=== PATIENT | female | born 1960 | race Caucasian/White ===

== ENCOUNTER → 2016-11-08 | Outpatient (CLI) | payer BC, OTHER ==
--- NOTE | 2016-11-08 12:41 | MR ---
"EXAMINATION TYPE: MR cervical spine wo con DATE OF EXAM: 11/08/2016 10:48 AM COMPARISON: NONE HISTORY: csp radiculopathy TECHNIQUE: Multiplanar, multisequence images of the cervical spine were acquired. C2-C3: Central broad-based disc bulging. No canal stenosis or foraminal encroachment. C3-C4: Central disc herniation with the anterior compression of the spinal cord and severe canal sten osis. C4-C5: Central disc herniation with anterior compression of the spinal cord and severe spinal stenosi s. Mild bilateral foraminal encroachment. C5-C6: Broad-based central disc herniation with severe compression of the spinal cord. Uncovertebral joint hypertrophy results in severe bilateral foraminal encroachment. C6-C7: Central disc herniation with moderate to severe compression of the spinal cord. Uncovertebral joint hypertrophy is seen with moderate bilateral foraminal encroachment. C7-T1: No evidence for degenerative disc disease. No disc bulge/herniation or protrusion. No Canal stenosis. Foramina are patent bilaterally. Cervical segments are intact. There is normal alignment. Cervical spinal cord is of normal signal. Craniovertebral junction relationships are within normal limits. 5 mm left thyroid nodule noted. IMPRESSION: Multilevel sizable disc herniations with multilevel cord compression and severe spinal stenosis. 3 mm left thyroid nodule A Yellow message has been communicated to Dariel Newman DO via the [employer] | Critical Result sy stem on 11/08/2016 12:37 PM, Message ID [id number]."
== END | disposition home or self-care (01) ==
LOC: RADMRIMAIN 10:21
PROVIDERS: ATTEND Orthopaedic Surgery Orthopaedic Surgery of the Spine
DX: M48.02 Spinal stenosis, cervical region (principal); M50.10 Cervical disc disorder with radiculopathy, unspecified cervical region; G95.29 Other cord compression
CPT/HCPCS: 72141

== ENCOUNTER → 2016-12-26 | Outpatient (CLI) | payer BC, OTHER ==
--- NOTE | 2016-12-27 07:23 | MM ---
Reason for exam: screening (asymptomatic). History: Patient is postmenopausal. Physical Findings: Nurse did not find any significant physical abnormalities on exam. MG Screening Mammo w CAD Bilateral CC and MLO view(s) were taken. There are scattered fibroglandular densities. There is no discrete abnormality. These results were verbally communicated with the patient and result sheet given to the patient on 12/26/16. ASSESSMENT: Negative, BI-RAD 1 RECOMMENDATION: Routine screening mammogram of both breasts in 1 year.
--- NOTE | 2016-12-27 07:52 | BD ---
EXAMINATION TYPE: MG DEXA axial skeleton. DATE OF EXAM: 12/26/2016 2:49 PM COMPARISON: NONE CLINICAL HISTORY: V49.81 POST MENOPAUSAL STATUS, Z78.0 MENOPAUSAL STATE Height: 64 Weight: 234 FRAX RISK QUESTIONS: Alcohol (3 or more units per day): NO Family History (Parent hip fracture): NO BROKEN BONES Glucocorticoids (More than 3mos): NO (Ex: prednisone, prednisolone, methylprednisolone, dexamethasone, and hydrocortisone). History of Fracture in Adulthood: YES Secondary Osteoporosis: NO 1. Type 1 Diabetes: NO 2. Hyperthyroidism: NO 3. Menopause before 45: NO 4. Malnutrition: NO 5. Chronic liver disease: NO Rheumatoid Arthritis: NO Current Tobacco Use: NO RISK FACTORS HISTORY OF: Surgery to RT HIP...TOTAL HIP REPLACEMENT When: 2011 Other Fractures since Age 50: RT ELBOW When: > 50 YRS OLD Family History of Osteoporosis: YES, MOTHER, Smoke tobacco: NO Drink Alcohol: SOCIAL Active: YES Diet low in dairy products/other sources of calcium: NO Postmenopausal woman: 46 YRS OLD Adrenal Insufficiency: NO MEDICATIONS: Thyroid Medications: YES Which medication: SYNTHROID How Lon YRS Additional Medications: BP MEDS, TYLENOL WITH CODINE PRN, HEAVY USE OF STEROIDS IN PAST....LAST USED 2015 Additional History: HYPOGLYCEMIC, ARTHRITIS, NECK TROUBLE, FUSION SCHEDULED EXAM MEASUREMENTS: Bone mineral densitometry was performed using the [employer] System. Bone mineral density as measured about the Lumbar spine is: ----- L1-L4(G/cm2): 1.136 T Score Values are as follows: ----- L1: -0.8 ----- L2: -08 ----- L3: 0.2 ----- L4: -0.3 ----- L1-L4: -0.4 Bone mineral density NEW PATIENT, BASELINE Bone mineral density about the L hip (g/cm2): 0.852 T Score values are as follows: ----L Neck: -1.5 -----L Intertrochanter: -1.0 Bone mineral density NEW PATIENT, BASELINE FRAX %'S: 11.2% FOR MAJOR OSTEOPOROTIC FX AND 0.9% FOR HIP FX......PROBABILITY OF FX IN 10 YRS T CHRIS IMPRESSION: Osteopenia (T Score between -2.5 and -1 as noted by T score values There is slightly increased risk of fracture and the patient may be considered for treatment. Re-Screen 1-2 years. FOR HER LT HIP ONLY NOTE: T-SCORE=SD OF THE YOUNG ADULT MEAN.
== END | disposition home or self-care (01) ==
LOC: RADMAMWWP 14:45
PROVIDERS: ATTEND Family Medicine
DX: Z12.31 Encounter for screening mammogram for malignant neoplasm of breast (principal); Z78.0 Asymptomatic menopausal state; M85.80 Other specified disorders of bone density and structure, unspecified site
CPT/HCPCS: 77080; G0202

== ENCOUNTER 2017-01-01 04:59 | Inpatient (IN) | payer BC, OTHER ==
[2016-12-22 12:23] VITALS: BMI 38.2
[2017-01-01] MEDS ORDERED: ceFAZolin 2 GM in SODIUM CHLORIDE 0.9% 100 ML IVPB ONE (05:00)
[2017-01-01] MEDS ORDERED: BACITRACIN 50,000 UNIT, POLYMYXIN B 500,000 UNIT in SODIUM CHLORIDE 0.9% IRRIGATIO 1,00... IRRIGATION ONE (05:00)
[2017-01-01] MEDS ORDERED: SCOPOLAMINE 1.5MG/72HR PATCH TRANSDERM ONE (05:39)
[2017-01-01] MEDS ORDERED: HYDROmorphone 1 MG/ML 1 ML SYRINGE IVP PRN (05:39)
[2017-01-01] MEDS ORDERED: LIDOCAINE 1% 20 ML VIAL (10MG/ML) FOR IV START INTRADERMA PRN (05:39)
[2017-01-01] MEDS ORDERED: ONDANSETRON 4 MG/2 ML VIAL IVP ONE (05:39)
[2017-01-01] MEDS: LACTATED RINGERS 1,000 ML IV SCH ×2 (11:43→17:58)
[2017-01-01] MEDS ORDERED: THROMBIN (BOVINE) 5,000 UNIT VIAL TOPICAL ONE (12:52)
[2017-01-01] MEDS ORDERED: KETAMINE 10 MG/ML 20 ML VIAL ONE (12:53)
[2017-01-01] MEDS ORDERED: ePHEDrine 50 MG/ML 1 ML AMP ONE (12:53)
[2017-01-01] MEDS ORDERED: GELATIN SPONGE,ABSORB (LARGE) 1 EACH SPONGE TOPICAL ONE (12:53)
[2017-01-01] MEDS ORDERED: LIDOCAINE 1% INJ 10MG/ML (20 ML MDV) ONE (12:53)
[2017-01-01] MEDS ORDERED: LACTATED RINGERS 1,000 ML IV ONE ×3 (12:53→15:53)
[2017-01-01] MEDS ORDERED: DEXAMETHASONE SOD PHOS (MDV) 100 MG/10 ML VIAL ONE (12:53)
[2017-01-01] MEDS ORDERED: MIDAZOLAM 2 MG/2 ML VIAL ONE (12:53)
[2017-01-01] MEDS ORDERED: SUCCINYLCHOLINE CHLORIDE 100 MG/5 ML SYR IV ONE (12:53)
[2017-01-01] MEDS ORDERED: HYDROmorphone (PF) 1 MG/ML ONE (12:53)
[2017-01-01] MEDS ORDERED: fentaNYL (PF) 50 MCG/ML 2 ML AMP ONE (12:53)
[2017-01-01] MEDS ORDERED: ROCURONIUM BROMIDE 10 MG/ML 10 ML VIAL IV ONE (12:53)
[2017-01-01] MEDS ORDERED: LIDOCAINE 0.5%-EPI 1:200,000 50 ML VIAL SQ ONE (12:53)
[2017-01-01] MEDS ORDERED: PROPOFOL 10 MG/ML 20 ML VIAL IV ONE (12:53)
--- NOTE | 2017-01-01 14:01 | XR ---
EXAMINATION TYPE: XR cervical spine 1V DATE OF EXAM: 01/01/2017 1:55 PM COMPARISON: Cervical spine x-ray June 12, 2016 HISTORY: Cervical arthropathy TECHNIQUE: Single portable crosstable lateral view of cervical spine is obtained intraoperatively FINDINGS: Single image acquired is for surgical planning and not diagnostic purposes. Metallic pointe r is noted at C4-C5 disc space level. IMPRESSION: As above.
--- NOTE | 2017-01-01 15:56 | XR ---
EXAMINATION TYPE: XR cervical spine 1V DATE OF EXAM: 01/01/2017 3:51 PM COMPARISON: Cervical spine x-ray from earlier today. HISTORY: Cervical stenosis and pain TECHNIQUE: Single portable crosstable lateral view of cervical spine is obtained intraoperatively. FINDINGS: There is interval placement of anterior fusion plate with proximal screw at C3 vertebral jacinda dy level, mid screw at C6 vertebral body level, and inferior screw obscured by overlying soft tissue likely at T1 level. High dense disc material is seen at C3-C4, C4-C5, and C5-C6 levels. The soft subo ptimal evaluation low C6 vertebra. Alignment is satisfactory and stable. There is interval treatment of anterior osteophytes C5-C6 level. Flexible endotracheal tube redemonstrated. Nasal monitor redemonstrated. IMPRESSION: Partial visualization of long segment anterior fusion hardware and hyperdense disc spacer s.
[2017-01-01] MEDS ORDERED: MAG HYDROX/AL HYDROX/SIMETH 30 ML CUP PO PRN (16:03)
[2017-01-01] MEDS ORDERED: HYDROcodone/APAP 5-325MG 1 EACH TAB PO PRN (16:03)
--- NOTE | 2017-01-01 16:03 | P.OP ---
Date of Procedure: 01/01/17 Preoperative Diagnosis: Cervical myelopathy, severe cervical stenosis C3 4 C4 5, C5 6 and C6 7, degenerative disc disease C3 through C7, neck pain with upper extremity radiculopathy, myeloradiculopathy Postoperative Diagnosis: Same Anesthesia: GETA Pathology: none sent Condition: stable Disposition: PACU Description of Procedure: BRIEF OPERATIVE NOTE Preoperative Diagnosis: Severe cervical stenosis C3 4 C4 5 C5 6 C6 7, cervical myelopathy, cervical myeloradiculopathy, degenerative disc disease C3 through C7 , neck pain with upper extremity radiculopathy Postoperative Diagnosis: Same Procedure: Anterior cervical decompression and fusion C3 4 C4 5 C5 6 C6 7 Placement of interbody graft C3 4 C4 5 C5 6 C6 7 Application of anterior cervical plate C3 4 567 Surgeon: Dr. Newman Requirements Manager: Felix Ramey is present throughout the entire the case persistence during positioning, dissection, exposure, visualization, and all crucial elements of the case as well as closure. Anesthesia: General anesthesia Estimated blood loss: Approximately 150 mL Complications: None apparent Components implanted: K2M Pyreanese titanium anterior cervical plate and screws , with Vikos allograft interbody bone graft Disposition: To recovery room in good stable condition. OPERATIVE INDICATIONS The patient has had long-standing issues in their neck and upper extremities. She is found have severe stenosis at multiple levels of C3 4 C4 5 C5 6 and C6 7. She had some evidence of early myelopathy on her physical exam and was having worsening of her symptoms. The patient has been through conservative treatment. She is not having any lasting benefit despite aggressive conservative treatment. We discussed various treatment options including surgery, and the patient wishes to proceed with surgery We discussed the risk, patient's alternatives and benefits of surgery including but not limited to, risk of bleeding risk of infection, risk of need for further surgery, risk of decreased, loss of motion, muscle function, malunion nonunion, hardware failure , nerve damage, paralysis, heart attack, and . OPERATIVE SUMMARY After discussing all the risks, patient alternatives and benefits at length, the patient elected to proceed with surgical intervention, signed informed consent, and presented for their procedure. The patient was seen and examined in the preoperative holding area and the surgical site was marked. The patient was given antibiotics and brought to the operating room. The patient was positioned on the operating room table in a supine position being careful to pad any bony prominences and pressure points. The patient was sedated and intubated by anesthesia in standard fashion. Once the airway and C- spine were stabilized the patient's arms were padded and tucked at her side, with her shoulders gently taped. The head was placed in a donut pad with the neck in good neutral alignment and position. We were careful to maintain the patient's cervical spine and good neutral alignment and position throughout. The patient was prepped and draped in a normal standard fashion. An appropriate timeout and keystone protocol performed. We were able to proceed with the surgery. The local wound area was infiltrated with local anesthetic. An incision was made longitudinally to the right at the anterior border of her sternocleidomastoid approximately 5 cm in length over the appropriate levels. Dissection was taken down subcutaneously to the level of the platysma which was split in line with its fibers. Dissection was taken with a carotid approach, with the trachea and esophagus medial and the carotid sheath laterally. We dissected down to the anterior surface of the vertebral bodies. Intraoperative x-ray was taken which showed a marker at the appropriate level of C4 5. With the appropriate level positively confirmed, we were able to proceed with discectomy at the appropriate levels starting at C6 7 and then working our way cephalad to C5 6 C4 5 and C3 4. All of the operative levels were exposed appropriately. The patient had all their twitches back, and there was no evidence of recurrent laryngeal issue. The wound was copiously irrigated and suctioned dry as had been done periodically throughout the case. There were large anterior osteophytes particular at C56 and C4 5 which were taken down with a rongeur. At the appropriate level/levels, I established an annulotomy with an 11 blade scalpel. A discectomy was performed with a combination of pituitary rongeurs, curettes, a high-speed bur, and Kerrison rongeurs. The posterior longitudinal ligament was taken down as were any posterior osteophytes. Note was made of severe cervical stenosis at each level particularly at C34 and C6 7. I was able to take down posterior osteophytes and the posterior longitudinal ligament as well as any protruded disc. This gave good central and bilateral foraminal decompression. There is no evidence of any dural tear or leak. The endplates were prepared with a high-speed bur. With the endplates in good parallel position, I was able to size for the appropriate size interbody graft. The wound was irrigated and suctioned dry the graft was prepared and malleted into position. It had good alignment and position with the anterior surface flush with the anterior surface of the vertebral bodies. This was done similarly the appropriate levels first at C6 7 and then at C5 6 and then at C4 5 and then at C3 4. With the grafts intact, I was able to measure and contour and appropriate sized plate. The plate was positioned at the midline over the appropriate levels. Screw holes were established with a hand drill and drill guide. Screws were placed in good alignment and position with excellent bony purchase. They were seated well and torqued appropriately with the appropriate force to apply a cold weld at the construct. The alignment of the screw holes did not allow placement at each level. I was able place screws 2 at C3 C6 and C7. The construct was checked and found to be stable. Intraoperative x-ray was taken which showed good alignment and position of the implants at the appropriate levels. There was no evidence of any dural tear or leak. Good hemostasis was maintained. The wound was copiously irrigated and suctioned dry as had been done periodically throughout the case. The platysma was closed with absorbable suture. The subcutaneous tissue was closed. The subcuticular tissue was closed with absorbable suture. The wound was cleaned and dried and dressed appropriately. A soft cervical collar was placed appropriately. The patient was woken up by anesthesia, extubated, transferred back gently to their hospital bed and brought to the recovery room in good stable condition. The patient will be admitted to the hospital for appropriate postoperative care , medical management and monitoring. We will continue to follow them closely about the postoperative course.
[2017-01-01] MEDS ORDERED: Acetaminophen-Codeine 300-30mg TAB PO PRN (16:05)
[2017-01-01] MEDS ORDERED: LABETALOL 5 MG/ML VIAL MDV IVP ONE ×3 (16:45→17:12)
[2017-01-01] MEDS ORDERED: HYDROmorphone 1 MG/ML 1 ML SYRINGE IVP ONE ×2 (17:13→17:18)
[2017-01-01] MEDS: ceFAZolin 2 GM in SODIUM CHLORIDE 0.9% 100 ML IVPB SCH (20:44)
[2017-01-01] MEDS: HYDROmorphone 1 MG/ML 1 ML SYRINGE IVP PRN (23:26)
[2017-01-02] MEDS: HYDROmorphone 1 MG/ML 1 ML SYRINGE IVP PRN ×6 (01:18→21:13)
[2017-01-02] MEDS: HYDROcodone/APAP 5-325MG 1 EACH TAB PO PRN ×6 (01:51→23:52)
[2017-01-02] MEDS: ceFAZolin 2 GM in SODIUM CHLORIDE 0.9% 100 ML IVPB SCH (04:49)
[2017-01-02] MEDS: LEVOTHYROXINE 100 MCG TAB PO SCH (06:35)
[2017-01-02] MEDS: LOSARTAN 50 MG TAB PO SCH (07:34)
[2017-01-02] MEDS: DOCUSATE 100 MG CAP PO SCH (07:34)
[2017-01-02] MEDS: DIAZEPAM 5 MG TAB PO PRN ×3 (08:19→18:44)
[2017-01-02] MEDS: ONDANSETRON 4 MG/2 ML VIAL IVP PRN ×2 (08:58→17:02)
--- NOTE | 2017-01-02 09:07 | P.PN ---
Progress Note - Text Orthopedic Spine Patient is a pleasant 56-year-old female who is seen at the bedside following anterior cervical decompression and fusion C3-4, C4-5, C5-6, and C6-7 performed yesterday. She continues to have her soft cervical collar intact. Nursing has not allowed her to get out of bed until her hard cervical collar has been placed. I have removed her soft cervical collar in place her in a hard cervical collar. Patient states she did have some difficulty with pain control last night. She has been experiencing some pains between the shoulders , the posterior cervical spine, and over the right upper extremity. Breakfast was just recently brought to her this morning and she has not been able to attempt eating at this morning. She states she is ready to use the restroom and is planning to do so now that she has been transitioned into a hard collar. Currently does not complain of nausea, vomiting, fever, or chills. Patient states pain has been somewhat controlled. Physical Exam Cervical Fusion: Status post surgical day number 1 Patient is awake, alert, and oriented 3 Vital signs stable Good chest excursion with deep inspiration and expiration Abdomen soft nontender Nurse Receptionist strength, thumb strength, interosseous strength, biceps strength, triceps strength, and shoulder strength positive sustained bilaterally No signs or symptoms of DVT; no calf pain Dressing is dry and intact; no erythema, purulence, or signs of infection Small amounts of dried blood on the Telfa without active drainage Patient is wearing soft cervical collar, which is removed during physical examination Patient placed in hard cervical collar Assessment: Anterior cervical decompression and fusion C3-4, C4-5, C5-6, and C6-7 C3-4, C4-5, C5-6, and C6-7 severe cervical stenosis and degenerative disc disease Cervical myelopathy Myeloradiculopathy Cervicalgia with upper extremity radiculopathy Plan: 1. Ambulate as tolerated; work with Physical Therapy to increase mobilization 2. Continue pain control 3. Patient transitioned from soft cervical collar to hard collar; patient should keep hard collar intact while ambulating, while doing activities, and while sitting upright; she may wear a soft cervical collar while sleeping 4. Patient may shower with Tegaderm dressing; patient may remove Tegaderm in 4 days and shower without a dressing at that time 5. Medical management can continue to manage patient for patient's other medical issues 6. We will continue to follow the patient closely; if the patient improves throughout the day, we may plan for discharge home tomorrow, 01/03/2017 7. Patient can follow-up with Felix Coyle PA-C or Dr. Jameel Newman at [facility] in 2-3 weeks following discharge
[2017-01-02 16:10] VITALS: RESP 16
[2017-01-02] MEDS: BENZOCAINE/MENTHOL LOZENG 1 EACH LOZENGE MUCOUS MEM PRN (23:52)
[2017-01-03] MEDS: DIAZEPAM 5 MG TAB PO PRN ×3 (01:36→13:43)
[2017-01-03] MEDS: HYDROmorphone 1 MG/ML 1 ML SYRINGE IVP PRN (01:36)
[2017-01-03] MEDS: HYDROcodone/APAP 5-325MG 1 EACH TAB PO PRN ×3 (04:10→13:43)
[2017-01-03] MEDS: BENZOCAINE/MENTHOL LOZENG 1 EACH LOZENGE MUCOUS MEM PRN (07:14)
[2017-01-03] MEDS: LEVOTHYROXINE 100 MCG TAB PO SCH (07:14)
[2017-01-03 07:36] VITALS: BP 128/65; PULSE 76; TEMP 97.5
--- NOTE | 2017-01-03 07:50 | P.DS ---
Providers Date of admission: 01/01/17 11:19 Expected date of discharge: 01/03/17 Attending physician: Dariel Newman Primary care physician: Harlan Rodriguez - Discharge Diagnosis(es) (1) Cervical stenosis of spinal canal Current Visit: Yes Status: Acute (2) Degenerative disc disease, cervical Current Visit: Yes Status: Acute (3) Radiculopathy affecting upper extremity Current Visit: Yes Status: Acute (4) Myelopathy Current Visit: Yes Status: Acute (5) Cervicalgia Current Visit: Yes Status: Acute Hospital Course: This is a pleasant 56-year-old female who presented with C3-4, C4-5, C5-6, and C6-7 severe cervical stenosis and degenerative disc disease, Cervical myelopathy , Myeloradiculopathy, and Cervicalgia with upper extremity radiculopathy who failed outpatient conservative therapy. She admitted for Anterior cervical decompression and fusion C3-4, C4-5, C5-6, and C6-7. The patient tolerated the procedure well and did fairly well postoperatively. She has been experiencing some pain and muscle spasms over the right shoulder and right scapula. She is continued to take [place] 5 mg 2 tabs every 4 hours and Valium for some control her symptoms. Other than that, she states her symptoms have been well- controlled. She continues to wear a hard cervical collar while ambulating and doing activities. She has been wearing a soft collar while lying in bed. Patient states she is ready for discharge home. Condition on day of discharge stable. Patient will be discharged home. Patient was cleared preoperatively for surgery by Dr. Rodriguez. Patient currently denies any nausea, vomiting, fever , or chills. Patient is eating and voiding freely without difficulty. She states her throat is still sore but she has been able to swallow without difficulty. Patient may shower Tegaderm dressing intact. Patient may remove Tegaderm dressing in 3 days and shower without a dressing at that time. Patient should keep Steri-Strips intact and allow them to fall off naturally. Patient should refrain from driving until at least after their first follow-up appointment in the office. Patient should avoid excessive neck flexion, extension, rotation, and lateral sidebending; no overhead lifting; no lifting greater than 10 pounds. Patient has been instructed to continue wearing her hard cervical collar while ambulating and while doing activities. She does not have to wear the hard collar while lying in bed or bathing. She should sleep with her soft cervical collar intact. She'll given a prescription for Flexeril 10 mg 1 tablet every 8 hours and [place] 10 mg/325mg 1 tab every 4 hours which she may take as needed for relief of her symptoms. She should discontinue taking Tylenol 3 with codeine. She should avoid anti-inflammatories over the next 6 weeks. Physical Exam on day of discharge: Patient is awake, alert, and oriented 3 Vital signs stable Good chest excursion with deep inspiration and expiration Abdomen soft nontender No signs or symptoms of DVT; no calf pain Full range of motion of the cervical spine with adequate flexion, extension, and bilateral rotation Manager [employer] strength, thumb strength, interosseous strength, biceps strength, triceps strength, and shoulder strength positive sustained bilaterally Soft cervical collar intact Incision is clean, dry, and intact; no erythema, purulence, or signs of infection Tegaderm dressing and non-stick Telfa intact Procedures: Anterior cervical decompression and fusion C3-4, C4-5, C5-6, and C6-7 Patient Condition at Discharge: Stable Plan - Discharge Summary New Discharge Prescriptions: Cyclobenzaprine [Flexeril] 10 mg PO TID PRN #90 tab PRN Reason: Muscle Spasm HYDROcodone/APAP 10-325MG [[place] 10] 1 each PO Q4H PRN #90 tab PRN Reason: Pain Discharge Medication List Levothyroxine Sodium [Synthroid] 100 mcg PO DAILY 02/15/15 [History] Acetaminophen-Codeine 300-30mg [Tylenol #3] 1 tab PO Q4H PRN 09/13/16 [History] Losartan Potassium 100 mg PO DAILY 09/13/16 [History] Cyclobenzaprine [Flexeril] 10 mg PO TID PRN #90 tab 01/03/17 [Rx] HYDROcodone/APAP 10-325MG [[place] 10] 1 each PO Q4H PRN #90 tab 01/03/17 [Rx] Follow up Appointment(s)/Referral(s): Felix Coyle, TRELL [PHYSICIAN BIOMASS FACILITATOR] - 2 Weeks (Patient may follow-up with Felix Coyle PA-C or Dr. Jameel Newman at [facility] in 2-3 weeks following discharge. ) Activity/Diet/Wound Care/Special Instructions: 1. Patient may shower Tegaderm dressing intact. 2. Patient may remove Tegaderm dressing in 3 days and shower without a dressing at that time. 3. Patient should keep Steri-Strips intact and allow them to fall off naturally. 4. Patient should refrain from driving until at least after their first follow- up appointment in the office. 5. Patient should avoid excessive cervical extension, flexion, rotation, and side bending; avoid overhead lifting; no lifting greater than 10 pounds 6. Do not soak in tub 7. Keep hard cervical collar intact while sitting upright, while ambulating, while doing activities, and while working with physical therapy; may transition into a soft cervical collar while sleeping Discharge Disposition: HOME SELF-CARE
[2017-01-03] MEDS: ONDANSETRON 4 MG/2 ML VIAL IVP PRN (08:23)
[2017-01-03] MEDS: DOCUSATE 100 MG CAP PO SCH (09:11)
[2017-01-03] MEDS: LOSARTAN 50 MG TAB PO SCH (09:11)
--- NOTE | 2017-01-03 15:13 | P.PN ---
Progress Note - Text Postoperative day #2 Patient is seen and examined today at bedside. The patient has some pain around the surgical site as expected. Pain is being controlled with medication. Her pain is much improved today she's not having as much spasm at the base of her neck or toward her right side. She's not having weakness in her upper extremities. She feels her arms are doing better. She is able tolerate her diet and ambulate around the room and into the hallways. Physical Exam Afebrile with stable vital signs Abdomen is soft nontender. Chest has good excursion deep and space expiration The incision site is clean dry and intact. No erythema there is no purulence. Her neck is soft and supple Extremities have not had neurologic change from prior to surgery. She is good strength in her bilateral hands and wrists and elbows and shoulders. She has some spasm at her shoulders particularly on the the right Calves and thighs were soft nontender without evidence of DVT. Assessment/Plan Postoperative day #2 status post anterior cervical discectomy fusion C3 4 C4 5 C5 6 and C6 7 for her severe stenosis with cervical myelopathy Patient is progressing as expected from the surgery. Her spasm are improving significantly and I think she'll be able to go home today. Her neurologic status is well maintained and she feels her sensation in her upper extremities has improved. We will continue to increase the patient's mobilization with therapy. We will continue pain control with oral or IV medications. We'll continue to follow patient closely.
== END 2017-01-03 14:20 | disposition home or self-care (01) | DRG 472 ==
LOC: 2ORMAIN 11:19 → 5MS5E 16:01
PROVIDERS: ADMIT Orthopaedic Surgery Orthopaedic Surgery of the Spine; ATTEND Orthopaedic Surgery Orthopaedic Surgery of the Spine
PROC: 0RT30ZZ Resection of Cervical Vertebral Disc, Open Approach (ICD-10-PCS; 2017-01-01)
PROC: 0RG20K0 Fusion of 2 or more Cervical Vertebral Joints with Nonautologous Tissue Substitute, Anterior Approach, Anterior Column, Open Approach (ICD-10-PCS; principal; 2017-01-01 13:00)
DX: M48.02 Spinal stenosis, cervical region (principal); M50.01 Cervical disc disorder with myelopathy, high cervical region; I10 Essential (primary) hypertension; M50.121 Cervical disc disorder at C4-C5 level with radiculopathy; E03.9 Hypothyroidism, unspecified; E78.00 Pure hypercholesterolemia, unspecified; E78.5 Hyperlipidemia, unspecified; E66.9 Obesity, unspecified; Z68.38 Body mass index [BMI] 38.0-38.9, adult; M79.7 Fibromyalgia; M48.06 Spinal stenosis, lumbar region; M51.37 Other intervertebral disc degeneration, lumbosacral region; M47.9 Spondylosis, unspecified; Z79.899 Other long term (current) drug therapy; Z98.84 Bariatric surgery status; Z88.1 Allergy status to other antibiotic agents
CPT/HCPCS: 72020

== ENCOUNTER 2017-10-16 06:59 | Day surgery (SDC) | payer OTHER ==
[2017-10-09 10:15] VITALS: BMI 36.6
[~2017-10-16 06:59] MED LIST: DEXAMETHASONE SOD PHOSPHATE 10 MG/ML 1 ML VIAL IV ONE; LACTATED RINGERS 1,000 ML IV SCH; MIDAZOLAM 2 MG/2 ML VIAL IV PRN; ceFAZolin IN SWFI 2 GM/20 ML SYRINGE IVP ONE
[2017-10-16] MEDS ORDERED: LIDOCAINE 1% 20 ML VIAL (10MG/ML) FOR IV START INTRADERMA ONE (07:20)
[2017-10-16] MEDS: ONDANSETRON 4 MG/2 ML VIAL IVP ONE ×2 (07:23→09:22)
[2017-10-16] MEDS ORDERED: LIDOCAINE 1% INJ 10MG/ML (20 ML MDV) ONE (07:56)
[2017-10-16] MEDS ORDERED: fentaNYL (PF) 50 MCG/ML 2 ML AMP ONE (07:56)
[2017-10-16] MEDS ORDERED: BUPIVACAINE (PF) 0.5% 30 ML VIAL INTRAARTIC ONE (07:56)
[2017-10-16] MEDS ORDERED: MIDAZOLAM 2 MG/2 ML VIAL ONE (07:56)
[2017-10-16] MEDS ORDERED: KETOROLAC 30 MG/ML 1 ML VIAL ONE (07:56)
[2017-10-16] MEDS ORDERED: HYDROmorphone (PF) 1 MG/ML ONE (07:56)
[2017-10-16] MEDS ORDERED: PROPOFOL 10 MG/ML 20 ML VIAL IV ONE (07:56)
[2017-10-16] MEDS ORDERED: LACTATED RINGERS 1,000 ML IV ONE (08:45)
[2017-10-16] MEDS: HYDROmorphone 1 MG/ML 1 ML SYRINGE IVP PRN ×2 (09:22→09:34)
[2017-10-16] MEDS ORDERED: HYDROcodone/APAP 5-325MG 1 EACH TAB PO ONE (10:43)
[2017-10-17 22:55] VITALS: BP 161/89; PULSE 96; RESP 16; TEMP 97
--- NOTE | 2017-10-19 13:19 | OP ---
OPERATIVE REPORT DATE OF SERVICE: 10/16/2017. SURGEON: Nic Lombardo DO PREOPERATIVE DIAGNOSIS: Degenerative joint disease of the left knee with torn left medial meniscus. POSTOPERATIVE DIAGNOSES: 1. Posterior horn tear of the left medial meniscus. 2. 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 3. 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 OPERATION: Left knee arthroscopy, partial posterior horn meniscectomy, medial femoral chondroplasty, and patellofemoral chondroplasty. ESTIMATED BLOOD LOSS: SPECIMEN TAKEN: DESCRIPTION OF PROCEDURE: The patient was taken to the operative suite and placed in supine position. General inhalation anesthesia was performed by the department anesthesiology. The patient was secured in a leg bonner and the left leg was prepped with Betadine from mid thigh to mid calf. Sterile drapes applied in the usual manner. An inflow trocar was inserted in patellar pouch. The irrigation was then performed. The arthroscope was inserted through anterior lateral portal and inspection of the medial compartment was noted. Evidence of grade 3 to 4 chondromalacia of the medial femoral condyle was noted. Appropriate chondroplasty was performed at this time. Inspection of the medial meniscus revealed posterior medial horn tear. The meniscectomy was then performed, utilizing meniscal shaver and basket forceps. The anterior cruciate remained intact. Lateral compartment was inspected and there appeared to be mild degenerative joint in the lateral compartment. Scope was then introduced in the patellofemoral joint area and evidence of severe grade 3 to 4 chondromalacia was noted. The shaver was utilized in debriding some of the large fragments of degenerative changes. Copious irrigation of the joint surface. The wound approximated with 4-0 nylon. Infiltrated the joint with 0.5% Marcaine. Sterile pressure dressing was applied and the patient was transferred to the recovery room in satisfactory postop condition. GROSS PATHOLOGY: There was a tear posterior medial horn of the medial meniscus left knee. Grade 3 to 4 chondromalacia of the medial femoral condyle was noted. Trochlear groove at patellofemoral joint severe grade 3 to 4 chondromalacia with some fragmentation of the articular cartilage. MMODL / IJN: [id number] / MTDD
== END 2017-10-16 12:03 | disposition home or self-care (01) ==
LOC: OR 06:59
PROVIDERS: ATTEND Orthopaedic Surgery
DX: S83.242A Other tear of medial meniscus, current injury, left knee, initial encounter (principal); X58.XXXA Exposure to other specified factors, initial encounter; M17.12 Unilateral primary osteoarthritis, left knee; M94.262 Chondromalacia, left knee; I10 Essential (primary) hypertension; E03.9 Hypothyroidism, unspecified; E78.5 Hyperlipidemia, unspecified; E78.00 Pure hypercholesterolemia, unspecified; M79.7 Fibromyalgia; G62.9 Polyneuropathy, unspecified; Z87.891 Personal history of nicotine dependence; Z79.891 Long term (current) use of opiate analgesic; Z79.52 Long term (current) use of systemic steroids; Z79.899 Other long term (current) drug therapy; Z88.2 Allergy status to sulfonamides; Z88.1 Allergy status to other antibiotic agents; Z88.8 Allergy status to other drugs, medicaments and biological substances
CPT/HCPCS: 29881; J2250; J1100; J0690; J2405; J2001; J3010; J1885; J1170; J2704

== ENCOUNTER → 2018-01-14 | Outpatient (CLI) | payer OTHER ==
--- NOTE | 2018-01-14 22:38 | MR ---
EXAMINATION TYPE: MR brain wo/w con DATE OF EXAM: 01/14/2018 COMPARISON: NONE HISTORY: MS CONTRAST: Performed utilizing 10 mL intravenous Gadavist gadolinium contrast. TECHNIQUE: Multiplanar, multisequence imaging of the brain is performed on a 3.0 Hailee magnet. Demye linating disease protocol with additional Sagittal Flair sequence is performed. Study is performed wi thin 24 hours of arrival to the hospital. FINDINGS: T2 White Matter Lesions Present : Yes Approximate Number of Lesions: Multiple scattered Locations Identified : Left correia radiata Size of Largest Lesion(s): 1. 0.5 x 0.6 x 0.5 cm. Location: Left correia radiata above the left basal ganglion Sequence 501 Imag e 17 (axial) and Sequence 601 Image 14 (sagittal). Enhancing Lesion(s) Present: No Change from Prior: Not applicable Diffusion-weighted imaging is performed. No abnormal hyperintensity is present to suggest an acute i ntracranial infarct or acute ischemic change. Ventricles and sulci are appropriate for the patient age. There are no abnormal extra-axial fluid collections. The ventricular system and cisternal spaces are normal in size and appearance. The brain volume is age appropriate. The craniocervical junction katelynn ears within normal limits. The dural venous sinuses appear patent. No abnormal enhancement is present on post contrast images. . There is opacification of the right max illary sinus. Mild mucosal thickening is within ethmoid air cells. IMPRESSION: 1. There is a 0.5 cm hyperintensity on inversion recovery weighted sequences within the left correia radiata. Couple of punctate additional areas may be present. This is not of proportion of the patient age. This could be related to microvascular ischemic change. Gliosis from migraine headaches could b e considered. Multiple sclerosis remains within the differential. Vasculitis and Lyme disease are wit hin the differential.
== END | disposition home or self-care (01) ==
LOC: RADMRIMAIN 08:47
PROVIDERS: ATTEND Psychiatry & Neurology Neurology
DX: G35 Multiple sclerosis (principal); I67.7 Cerebral arteritis, not elsewhere classified; G93.89 Other specified disorders of brain; Z13.89 Encounter for screening for other disorder
CPT/HCPCS: 82565; 70553; 36415; A9581

== ENCOUNTER → 2018-09-16 | Outpatient (CLI) | payer OTHER ==
[2018-09-16 15:04] LABS: HCT 36.2 % (34.0-46.0); HGB 11.9 gm/dL (11.4-16.0); MCH 29.8 pg (25.0-35.0); MCHC 32.8 g/dL (31.0-37.0); MCV 90.7 fL (80.0-100.0); Mean Platelet Volume 6.7; Platelet Count 218 k/uL (150-450); RBC 3.99 m/uL (3.80-5.40); RDW 13.4 % (11.5-15.5)
[2018-09-16 15:11] LABS: ALT 21 U/L (9-52); AST 21 U/L (14-36); Albumin 3.9 g/dL (3.5-5.0); Alkaline Phosphatase 64 U/L (38-126); Anion Gap 7 mmol/L; Blood Urea Nitrogen 17 mg/dL (7-17); Calcium 9.3 mg/dL (8.4-10.2); Carbon Dioxide 26 mmol/L (22-30); Chloride 107 mmol/L (98-107); Glucose 92 mg/dL (74-99); Potassium 4.7 mmol/L (3.5-5.1); Sodium 140 mmol/L (137-145); Total Bilirubin 0.4 mg/dL (0.2-1.3); Total Protein 6.6 g/dL (6.3-8.2)
[2018-09-16 15:12] LABS: Appearance,Urine Cloudy (Clear); Bacteria,Urine Occasional /hpf; Bilirubin,Urine Negative (Negative); Blood,Urine Negative (Negative); Color,Urine Yellow; Glucose,Urine (UA) Negative (Negative); Ketones,Urine Negative (Negative); Leukocyte Esterase,Urine Large (Negative); Mucus,Urine Rare /hpf; Nitrite,Urine Negative (Negative); Protein,Urine Negative (Negative); RBC,Urine 2 /hpf (0-5); Squamous Epithelial Cell,Urine 7 /hpf (0-4); Urobilinogen,Urine <2.0 mg/dL (<2.0); WBC,Urine 25 /hpf (0-5)
[2018-09-16 15:22] LABS: Prothrombin Time 9.8 sec (9.0-12.0)
== END | disposition home or self-care (01) ==
LOC: LABPAT 14:06
PROVIDERS: ATTEND Orthopaedic Surgery Sports Medicine
DX: Z01.812 Encounter for preprocedural laboratory examination (principal); M17.11 Unilateral primary osteoarthritis, right knee
CPT/HCPCS: 80053; 81001; 85027; 85610; 85730; 87070

== ENCOUNTER 2018-09-26 13:34 | Inpatient (IN) | payer OTHER ==
[2018-09-23 10:46] VITALS: BMI 36.6
[~2018-09-26 13:34] MED LIST changes: +ACETAMINOPHEN TAB 325 MG TAB PO PRN; +ACETAMINOPHEN TAB 500 MG TAB PO ONE; +BISACODYL 10 MG SUPP RECTAL PRN; +DIAZEPAM 5 MG TAB PO PRN; +HYDROcodone/APAP 5-325MG 1 EACH TAB PO PRN; +HYDROcodone/APAP 7.5-325MG 1 EACH TAB PO PRN; +HYDROmorphone 1 MG/ML 1 ML SYRINGE IVP PRN; -LACTATED RINGERS 1,000 ML IV SCH; +LIDOCAINE 1% 20 ML VIAL (10MG/ML) FOR IV START INTRADERMA PRN; +MAGNESIUM HYDROXIDE 2,400 MG/10 ML CUP PO PRN; +MELOXICAM 7.5 MG TAB PO ONE; +NA PHOS,M-B/NA PHOS,DI-BA 133 ML ENEMA RECTAL PRN; +NALOXONE 0.4 MG/ML 1 ML VIAL IV PRN; +ONDANSETRON 4 MG/2 ML VIAL IVP ONE; +ONDANSETRON 4 MG/2 ML VIAL IVP PRN; +ROPIVACAINE 246.25 MG, EPINEPHrine 0.5 MG, KETOROLAC 30 MG, cloNIDine HCL/PF 80 MCG, WA... MISCELLANE ONE; +SCOPOLAMINE 1.5MG/72HR PATCH TRANSDERM ONE; +TEMAZEPAM 15 MG CAP PO PRN; +TRANEXAMIC ACID 1,000 MG in SODIUM CHLORIDE 0.9% 50 ML IVPB ONE; +hydrOXYzine PAMOATE 25 MG CAP PO PRN; +traMADol 50 MG TAB PO PRN
[2018-09-26] MEDS: LACTATED RINGERS 1,000 ML IV SCH ×2 (15:15→23:41)
[2018-09-26] MEDS ORDERED: HYDROmorphone 1 MG/ML 1 ML SYRINGE IVP PRN (16:26)
[2018-09-26] MEDS ORDERED: diphenhydrAMINE 50 MG/ML 1 ML VIAL IVP PRN (16:26)
[2018-09-26] MEDS ORDERED: NALBUPHINE 10 MG/ML VIAL (10ML MDV) IV PRN (16:26)
[2018-09-26] MEDS ORDERED: NALOXONE 0.4 MG/ML 1 ML VIAL IV PRN (16:26)
[2018-09-26] MEDS ORDERED: MORPHINE SULFATE (PF) 0.3 MG/0.3 ML SYR ONE (16:49)
[2018-09-26] MEDS ORDERED: TRANEXAMIC ACID 1,000 MG/10 ML VIAL ONE (16:49)
[2018-09-26] MEDS ORDERED: SODIUM CHLORIDE 0.9% 100 ML BAG ONE (16:49)
[2018-09-26] MEDS ORDERED: PROPOFOL 10 MG/ML 20 ML VIAL IV ONE (16:49)
[2018-09-26] MEDS ORDERED: fentaNYL (PF) 50 MCG/ML 2 ML AMP ONE (16:49)
[2018-09-26] MEDS ORDERED: MIDAZOLAM 2 MG/2 ML VIAL ONE (16:49)
[2018-09-26] MEDS ORDERED: LIDOCAINE 1% INJ 10MG/ML (20 ML MDV) ONE (16:49)
[2018-09-26] MEDS ORDERED: ceFAZolin 3,000 MG in SODIUM CHLORIDE 0.9% IRRIGATIO 3,000 ML IRRIGATION ONE (17:20)
--- NOTE | 2018-09-26 19:18 | XR ---
EXAMINATION TYPE: XR knee limited LT DATE OF EXAM: 09/26/2018 COMPARISON: NONE HISTORY: Postop surgery TECHNIQUE: 05/03/2016 FINDINGS: There is a left knee prosthesis. Components are in anatomic position. IMPRESSION: No complicating process seen.
[2018-09-26] MEDS: ASPIRIN 325 MG TAB PO SCH (23:50)
[2018-09-26] MEDS: SENNOSIDES-DOCUSATE SODIUM 1 EACH TAB PO SCH (23:50)
--- NOTE | 2018-09-27 00:03 | OP ---
OPERATIVE REPORT DATE OF PROCEDURE: 09/26/2018. SURGEON: Jasvir Billings M.D. [employer] MECHANICAL DESIGNER: Sherman CAI. PREOPERATIVE DIAGNOSIS: Left knee osteoarthrosis. POSTOPERATIVE DIAGNOSIS: Left knee osteoarthrosis. OPERATION PERFORMED: Left total knee arthroplasty. ANESTHESIA: Spinal with sedation. ESTIMATED BLOOD LOSS: 100 mL. TOURNIQUET TIME: 53 minutes at 250 mmHg. COMPLICATIONS: None apparent. DRAINS: None. DISPOSITION: Postanesthesia care unit. INDICATIONS: Inocencia is a very pleasant 58-year-old female with longstanding history of left knee pain. History and physical examination are consist with advanced left knee osteoarthrosis. She has been through significant nonoperative management up to this point. Further treatment options were discussed and she has decided to go for the left total knee arthroplasty. The risks of procedure were discussed with her in detail. These risks include, but are not limited to risk of infection, nerve damage, bleeding, pain and risk of deep vein thrombosis which could lead to fatal pulmonary embolism. There is also risk of loosening of the implant which could require revision operation. The patient understands these risks. All of her questions were answered to her satisfaction. Appropriate informed consent was obtained. DESCRIPTION OF THE PROCEDURE: Patient identified in preoperative holding area. Surgical site was marked by both the patient and myself. She was given 2 g of Ancef IV for prophylactic purposes. She was then transferred to the operative suite. She was placed supine on the operative table. Spinal anesthetic was then administered and dosed per the anesthesia department without apparent complication. Examination under anesthesia was then performed. The patient was 2-3 degrees shy of full extension. She had 95 degrees of flexion and the medial collateral ligament, lateral collateral ligament posterior cruciate ligaments were stable. Tourniquet was then placed high on the left upper thigh well-padded in preparation for surgery. The patient's left lower extremity was then prepped and draped in usual sterile fashion. Standard surgical pause undertaken to ensure that we were operating the correct site and that appropriate preoperative antibiotics were given. All staff in the room in agreement we proceeded. The outlines of the patella were marked surgical pen. A planned 12 cm vertical incision centered over the patella was marked surgical pen. Leg was then exsanguinated with an Esmarch dressing. The knee was then flexed and the tourniquet was inflated to 250 mmHg. The total tourniquet time for the procedure was 53 minutes. The incision was then made with a 10 blade scalpel. Dissection was carried down sharply overlying fascia. Great care was taken to minimize the skin flaps. The knee was then exposed using a standard medial parapatellar approach. A small cuff of quadriceps tendon was then left for suturing. She was in a bit of varus preoperatively. A standard medial release was then made. Superficial medial collateral ligament was dissected off the bone around the posterior aspect of the proximal tibia. The medial meniscus was then excised as well. The lateral meniscus was also released anteriorly. The leg was then externally rotated. The patella was everted. The knee was flexed. The retractors were then placed to protect the collateral ligaments. I then proceeded to remove the infrapatellar fat pad. This was excised sharply tangentially with the fibers of the patellar tendon. I then proceeded to remove peripheral osteophytes. This was done with a rongeur. I then proceeded with the distal femoral resection. She did have near full extension. A planned 9 mm resection was then done. The femoral canal was then entered in midline of the femur approximately 10 mm anterior to the origin of the posterior cruciate ligament. The ra was then advanced down the center of the femur and placed intramedullary. Based on the preoperative radiographs, the angle between the anatomic and mechanical axis of the femur was approximately 4-5 degrees. The valgus angle of this femoral cutting guide was then set at 4 degrees for the left knee. The distal femoral cutting guide was then advanced over the intramedullary ra. This was seated firmly against the femur. I then as mentioned planned to take 9 mm off the distal femur. The cutting block was then secured to the femur with pins. The jig was removed. The distal femoral cutting guide. The cut was made through the slot of the block. The pins were then removed. The distal femoral cutting block was removed. The accuracy of the distal femoral cuts was checked with 2 flat bars. I then proceed to femoral sizing. The posterior referencing sizing guide was held firmly against the resected distal surface of the femur. The posterior condyles were resting on the posterior plane of the guide. The sizing stylus was then placed on the anterior femur. The size was measured as a size 5. I then assessed for femoral rotation. Plan was for 3 degrees of external rotation. Three degrees of external rotation was placed onto the jig. These holes were then marked. I then confirmed the rotation by 3 separate methods. This was done using the epicondylar axis as well as Whitesides line and posterior referencing. It was deemed that the external rotation was proper. I then went forward placing the femoral cutting block. This was placed over the previously placed pin holes. The Andre wing was then placed onto the anterior slots to ensure that we would not notch the anterior femur with the anterior femoral cut. I then proceed with the anterior femoral cut. This was flush with the anterior cortex of the femur. The posterior cuts were then made followed by the anterior chamfer cut, then the posterior chamfer cut. The cutting block was then removed. Throughout the resection, the collateral ligaments were protected with retractors. I then placed a trial size 5 femur. It fit very nice, medial-lateral and fit flush with the distal end of the femur. The drill holes were then made. I then proceeded with the tibial cut. I planned for cruciate retaining knee. The guide was placed and set for varus valgus and for slope. The height was set for approximate 2 mm resection from the medial tibial plateau which was the lower side. I was happy with the alignment and the amount of resection. The cutting block was then pinned to the proximal tibia. The alignment ra was removed. The proximal tibia was resected with a reciprocating saw. Again this was done with retractors protecting the collateral ligaments as well as the posterior cruciate ligament. I then proceeded to evaluate the flexion extension gaps. A 10 mm block was placed. The flexion-extension gaps were equal. I then proceeded with resection of posterior osteophytes. She had very minimal posterior osteophytes. This is done using a curved osteotome. This resected the posterior osteophytes and posterior capsule stripping was also done off the posterior aspect of the femur at this time. The osteophytes were then removed. I then proceeded with resection of patella. The thickness of patella was measured using a caliper. The thickness was 25 mm. The thickness of the anticipated patellar dome was taken into account. Resection was then performed and confirmed to be equal in 4 quadrants using a caliper. Approximately 14 mm of bone remained after the resection. A 32 x 8.5 standard patellar trial was then placed. The holes were drilled. The trial was then placed. I then proceeded with sizing the tibial plate. A size 4 tibial plate fit very nicely. I then placed the trial femur of the the tibial tray and patellar button. A 10 mm trial insert was also placed. The components fit very nicely. She had full extension and flexion. The extension and flexion gaps were equal and stable to both varus and valgus stress. The patella tracked appropriately. Tibial tray rotation was marked with a Bovie. This was externally rotated properly. I then proceed with tibial preparation. I first drilled the femoral holes, removed the femoral component. The tibial tray was then set for proper external rotation as well as mediolateral placement onto the tibia. It was then pinned into place. I then proceeded with punching the keel. I then decided to proceed with cementing of all of our components. The knee was thoroughly irrigated with sterile saline solution via pulse lavage. The lateral geniculate artery was identified and cauterized. All blood was removed from the bone of the tibia femur and patella with pulse lavage. I then proceed with cementing. Two packs of antibiotic bone cement prepared on the back table by the production tech. I then proceed with cementing the tibia first. The cement was impacted into the keel as well as deeply seated into the bone. A second coat of cement was then placed. The tibia was then impacted into place. Excess cement was removed with Terry's and Joker's. I then proceed with cementing of the femoral component. The femoral component was also cemented using standard technique. Excess cement was removed. A 9 mm trial insert was then placed into the knee. It was brought in full extension with a constant axial load placed until the cement had hardened. The patellar component was then cemented. This was held firmly with a compressive device until the cement had dried. When the cement had dried, the knee was taken out of extension. All excess cement was removed from around the prosthesis. I then trialed the knee with a 9 mm insert. Flexion and extension gaps were appropriate. The knee came into full extension. I decided to go forward with a 9 mm cross-link cruciate-retaining tibial insert. Polyethylene was then placed onto the tibial tray and locked into place. The knee was then reduced. The knee was again further irrigated with sterile saline solution with antibiotic added. The tourniquet was then deflated. Total tourniquet time for the procedure was 53 minutes at 250 mmHg. Final components were a [employer]ala [employer] legion Oxinium size 5 cruciate-retaining femoral component, a size 4 tibial tray, 9 mm cruciate-retaining polyethylene insert and a 32 x 8.5 mm patella. I then proceeded with closure. Again, the knee was thoroughly irrigated. The quadriceps tendon and the medial retinaculum were reapproximated with #2 Ethibond suture. The extensor mechanism was then closed with a running #2 Quill suture. Subcutaneous tissues were closed with 2-0 Vicryl interrupted suture. The skin was closed with a running 3-0 Quill suture. Dermabond was applied to the incision. Sterile compressive dressing was then applied. All sponge and needle counts were deemed correct prior to closure. The patient tolerated the procedure without apparent complication. She was transferred to the recovery room in stable condition. MMODL / IJN: [id number] /
[2018-09-27] MEDS: LACTATED RINGERS 1,000 ML IV SCH ×4 (00:33→19:42)
[2018-09-27] MEDS: ceFAZolin IN SWFI 2 GM/20 ML SYRINGE IVP SCH ×2 (00:35→10:01)
[2018-09-27] MEDS: LEVOTHYROXINE 50 MCG TAB PO SCH (06:11)
--- NOTE | 2018-09-27 07:25 | P.PN ---
Progress Note - Text Progress Note Date: 09/27/18 58-year-old female status post total knee arthroplasty postop day #1 with Duramorph spinal. Patient has complains of severe pruritus after dose of Dilaudid overnight. She is given a dose of Benadryl with no benefit, I ordered a dose of Nubain 2.5 mg and Zofran 4 mg. VAS is a 5 out of 10 in severity. No motor sensory deficits.
[2018-09-27] MEDS: HYDROmorphone 1 MG/ML 1 ML SYRINGE IVP PRN ×4 (07:37→19:43)
[2018-09-27 07:41] VITALS: RESP 16
[2018-09-27 08:16] LABS: Basophils % (A) 0 %; Eosinophils % (A) 0 %; HCT 32.7 % (34.0-46.0); HGB 10.9 gm/dL (11.4-16.0); Lymphocytes # (A) 0.8 k/uL (1.0-4.8); Lymphocytes % (A) 9 %; MCH 29.9 pg (25.0-35.0); MCHC 33.4 g/dL (31.0-37.0); MCV 89.7 fL (80.0-100.0); Monocytes # (A) 0.5 k/uL (0-1.0); Monocytes % (A) 5 %; Neutrophils # (A) 8.2 k/uL (1.3-7.7); Neutrophils % (A) 85 %; Platelet Count 226 k/uL (150-450); RBC 3.65 m/uL (3.80-5.40); RDW 12.8 % (11.5-15.5); WBC 9.6 k/uL (3.8-10.6)
[2018-09-27] MEDS: LOSARTAN 50 MG TAB PO SCH (08:34)
[2018-09-27] MEDS: ASPIRIN 325 MG TAB PO SCH ×2 (08:34→21:39)
[2018-09-27] MEDS: GABAPENTIN 100 MG CAP PO SCH ×3 (08:34→21:40)
[2018-09-27] MEDS: NITROFURANTOIN MONOHYD/M-CRYST 100 MG CAP PO SCH ×2 (08:34→21:48)
[2018-09-27] MEDS: OXYBUTYNIN CHLORIDE 5 MG TAB PO SCH ×2 (08:34→21:39)
[2018-09-27] MEDS: DULoxetine HCL 30 MG CAPSULE.DR PO SCH (08:34)
--- NOTE | 2018-09-27 09:39 | P.DS ---
Providers Date of admission: 09/26/18 13:34 Expected date of discharge: 09/27/18 Attending physician: Jasvir Billings Consults: 09/26/18 12:09 Consult Physician Routine Consulting Provider: Harlan Rodriguez Consult Reason/Comments: post op medical management Do you want consulting provider notified?: Yes Primary care physician: Julio Hall, DO - Discharge Diagnosis(es) (1) Osteoarthritis of left knee Patient was admitted to the OR on 09/26/2018 to undergo a left total knee arthroplasty. She had failed conservative measures as an outpatient and desired to proceed with elective surgery after given informed consent. She underwent the above procedure which he tolerated well without complication. Postoperative hospital course has remained without complication. On day of discharge she is afebrile, vital signs stable, labs within acceptable ranges, tolerating by mouth meds and diet, voiding without difficulty, positive flatus, denies abdominal pain or calf pain, pain is controlled on oral pain medication and has no new complaints. Wound is benign, neurovascular status is intact, calf is soft and nontender, abdomen soft and nontender. Review of systems is negative for numbness, tingling, fever, chills, chest pain, shortness breath, nausea, vomiting, dizziness, headaches, slurred speech or other. Current Visit: Yes Status: Acute (2) Cervical stenosis of spinal canal Current Visit: No Status: Acute (3) Degenerative disc disease, cervical Current Visit: No Status: Acute (4) Radiculopathy affecting upper extremity Current Visit: No Status: Acute Procedures: Left total knee arthroplasty Patient Condition at Discharge: Good Plan - Discharge Summary Discharge Rx Participant: Yes New Discharge Prescriptions: New Aspirin 325 mg PO BID #60 tab Docusate [Colace] 100 mg PO BID #60 capsule HYDROcodone/APAP 10-325MG [[place] 10-325] 1 tab PO Q4HR PRN #56 tab PRN Reason: Pain No Action Levothyroxine Sodium [Synthroid] 100 mcg PO QAM Losartan Potassium 100 mg PO QAM Cyclobenzaprine [Flexeril] 10 mg PO TID PRN #90 tab PRN Reason: Muscle Spasm Gabapentin [Neurontin] 200 mg PO TID Oxybutynin Chloride [Ditropan] 5 mg PO BID DULoxetine HCL [Cymbalta] 30 mg PO QAM rOPINIRole HCL 0.5 mg PO HS HYDROcodone/APAP 5-325MG [[place] 5] 1 - 2 tab PO Q4-6H PRN PRN Reason: Pain Nitrofurantoin Monohyd/M-Cryst [Macrobid] 100 mg PO Q12HR Discharge Medication List Levothyroxine Sodium [Synthroid] 100 mcg PO QAM 02/15/15 [History] Losartan Potassium 100 mg PO QAM 09/13/16 [History] Cyclobenzaprine [Flexeril] 10 mg PO TID PRN #90 tab 01/03/17 [Rx] DULoxetine HCL [Cymbalta] 30 mg PO QAM 09/23/18 [History] Gabapentin [Neurontin] 200 mg PO TID 09/23/18 [History] Oxybutynin Chloride [Ditropan] 5 mg PO BID 09/23/18 [History] rOPINIRole HCL 0.5 mg PO HS 09/23/18 [History] HYDROcodone/APAP 5-325MG [[place] 5] 1 - 2 tab PO Q4-6H PRN 09/26/18 [History] Nitrofurantoin Monohyd/M-Cryst [Macrobid] 100 mg PO Q12HR 09/26/18 [History] Aspirin 325 mg PO BID #60 tab 09/27/18 [Rx] Docusate [Colace] 100 mg PO BID #60 capsule 09/27/18 [Rx] HYDROcodone/APAP 10-325MG [[place] 10-325] 1 tab PO Q4HR PRN #56 tab 09/27/18 [Rx] Follow up Appointment(s)/Referral(s): Jasvir Billings MD [STAFF PHYSICIAN] - 10 Days Activity/Diet/Wound Care/Special Instructions: Keep wound clean and dry Take meds as directed Follow-up with Dr. Billings in office Weight bear as tolerated May shower in 3 days if no bleeding Discharge Disposition: HOME WITH HOME HEALTH SERVICES
[2018-09-27 11:26] LABS: Appearance,Urine Clear (Clear); Bilirubin,Urine Negative (Negative); Blood,Urine Negative (Negative); Color,Urine Yellow; Glucose,Urine (UA) Negative (Negative); Ketones,Urine Negative (Negative); Leukocyte Esterase,Urine Negative (Negative); Nitrite,Urine Negative (Negative); PH, Urine 5.5 (5.0-8.0); Protein,Urine Negative (Negative); Specific Gravity,Urine 1.006 (1.001-1.035); Urobilinogen,Urine <2.0 mg/dL (<2.0)
[2018-09-27] MEDS: MULTIVITAMINS, THERA 1 EACH TAB PO SCH (12:12)
[2018-09-27] MEDS: HYDROcodone/APAP 10-325MG 1 EACH TAB PO PRN ×2 (13:49→21:40)
--- NOTE | 2018-09-27 17:16 | CONS ---
CONSULTATION DATE OF SERVICE: 09/27/2018 REASON FOR CONSULTATION: Advice regarding hypertension and multiple medical issues, requested by Dr. Billings. HISTORY OF PRESENT ILLNESS: This 58-year-old woman with past medical history of fibromyalgia, GERD, history of hypertension, history of DJD, history of pneumonia, history of bariatric surgery, being followed by Dr. Julio Hall in the outpatient setting, was admitted after left total knee arthroplasty. There is no history of any fever, rigor or chills. No history of headache, loss of consciousness, seizures, chest pain or palpitations at this time. PAST MEDICAL HISTORY: 1. History of fibromyalgia. 2. GERD. 3. Hypertension. 4. DJD. 5. Hypothyroidism. HOME MEDICATIONS: 1. Requip 0.5 mg at bedtime. 2. Ditropan 5 mg p.o. b.i.d. 3. Macrobid 100 mg p.o. b.i.d. 4. Losartan 100 mg each morning. 5. Synthroid 100 mcg p.o. each morning. 6. Merna 5 mg 1 tablet q.6 p.r.n. 7. Neurontin 200 mg t.i.d. 8. Cymbalta 30 mg each morning. 9. Flexeril 10 mg t.i.d. p.r.n. 10.Hydrocodone 10 mg q.4 p.r.n. 11.Colace 100 mg p.o. b.i.d. 12.Aspirin 325 mg b.i.d. ALLERGIES: LEVAQUIN, BACTRIM. FAMILY HISTORY: History of lung cancer in the family. SOCIAL HISTORY: Previous history of smoking. Occasional alcohol intake. REVIEW OF SYSTEMS: ENT: No diminished hearing. No diminished vision. CARDIOVASCULAR SYSTEM: No angina, palpitations. RESPIRATORY SYSTEM: As mentioned earlier. GI: No nausea, vomiting. : No dysuria or retention. NERVOUS SYSTEM: No numbness, weakness. ALLERGY/IMMUNOLOGY: No asthma, hayfever. MUSCULOSKELETAL: As mentioned earlier. HEMATOLOGY/ONCOLOGY: No history of anemia. ENDOCRINE: As mentioned earlier. CONSTITUTIONAL: As mentioned earlier. DERMATOLOGY: Negative. RHEUMATOLOGY: Negative. PSYCHIATRY: As mentioned earlier. PHYSICAL EXAMINATION: Patient alert and oriented x3. Pulse 84, blood pressure 119/72, respirations 16, temperature 98.6, pulse ox 94% on room air. HEENT: Conjunctivae normal. Oral mucosa moist. NECK: No jugular venous distention. No carotid bruit. No lymph node enlargement. CARDIOVASCULAR SYSTEM: S1, S2 muffled. RESPIRATORY SYSTEM: Breath sounds diminished at the bases. No rhonchi. No crackles. ABDOMEN: Soft, non-tender. No mass palpable. LEGS: Status post left knee arthroplasty. NERVOUS SYSTEM: Higher functions as mentioned earlier. Moves all 4 limbs. No focal motor or sensory deficits. LYMPHATICS: No lymph node palpable in neck, axillae or groin. SKIN: No ulcer, rash, bleeding. LABS: WBC 9.6, hemoglobin 10.9. ASSESSMENT: 1. Status post left total knee arthroplasty. 2. Hypertension. 3. Fibromyalgia. 4. Gastroesophageal reflux disease. 5. Degenerative joint disease. 6. History of pneumonia. 7. History of hypertension. 8. Sciatica. 9. History of bariatric surgery. 10.Remote history of nicotine dependence. RECOMMENDATIONS AND DISCUSSION: In this 58-year-old woman who presented with multiple medical problems, at this time I recommend to continue current management, continue symptomatic treatment. Resume the home medications. DVT prophylaxis. Incentive spirometry. Recommend close followup with primary physician in the outpatient setting. Thank you, Dr. Billings, for letting us participate in the care of this patient. MMODL / IJN: [id number] /
[2018-09-27] MEDS: SENNOSIDES-DOCUSATE SODIUM 1 EACH TAB PO SCH (21:40)
[2018-09-28] MEDS: LACTATED RINGERS 1,000 ML IV SCH ×2 (01:21→04:16)
[2018-09-28] MEDS: HYDROmorphone 1 MG/ML 1 ML SYRINGE IVP PRN (02:20)
[2018-09-28] MEDS: HYDROcodone/APAP 10-325MG 1 EACH TAB PO PRN ×3 (03:40→13:52)
[2018-09-28] MEDS: LEVOTHYROXINE 50 MCG TAB PO SCH (06:12)
[2018-09-28] MEDS: LOSARTAN 50 MG TAB PO SCH (08:16)
[2018-09-28] MEDS: MULTIVITAMINS, THERA 1 EACH TAB PO SCH (08:17)
[2018-09-28] MEDS: OXYBUTYNIN CHLORIDE 5 MG TAB PO SCH (08:17)
[2018-09-28] MEDS: ASPIRIN 325 MG TAB PO SCH (08:17)
[2018-09-28] MEDS: DULoxetine HCL 30 MG CAPSULE.DR PO SCH (08:17)
[2018-09-28] MEDS: NITROFURANTOIN MONOHYD/M-CRYST 100 MG CAP PO SCH (08:17)
[2018-09-28] MEDS: GABAPENTIN 100 MG CAP PO SCH (08:17)
[2018-09-28 10:24] VITALS: BP 112/70; PULSE 96; TEMP 99.3
--- NOTE | 2018-09-28 17:38 | PN ---
PROGRESS NOTE DATE OF SERVICE: 09/28/2018 This 58-year-old woman who was admitted after left total knee arthroplasty, improving significantly. No chest pain. No palpitations. No fever. The patient had history of bariatric surgery. Patient also complains of some difficulty eating a cucumber. No chest pain. No palpitations. No fever. No abdominal pain. EXAM: Alert and oriented. Pulse 96, blood pressure 95/70, respiration 16, temperature 99.2, pulse ox 94% on room air. HEENT: Conjunctivae normal. Oral mucosa moist. NECK: No jugular venous distention. No lymph node enlargement. CARDIOVASCULAR: S1, S2. RESPIRATORY: Diminished breath sounds at the bases. No rhonchi, no crackles. ABDOMEN: Soft, nontender. LEGS: Status post surgery. NERVOUS SYSTEM: No focal deficits. LABS: WBC 9.2, hemoglobin 10.9. ASSESSMENT: 1. Status post left total knee arthroplasty. 2. Hypertension. 3. Fibromyalgia. 4. History of bariatric surgery. 5. History of gastroesophageal reflux disease. 6. Degenerative joint disease. 7. History pneumonia. 8. History of hypertension. 9. History of sciatica. 10.Remote history of nicotine dependence. RECOMMENDATIONS: Continue current medications, continue management and symptomatic treatment. Otherwise, at this time I recommend closely monitor with Orthopedic surgery. Further recommendations to follow. MMODL / IJN: [id number] /
== END 2018-09-28 15:37 | disposition home health service (06) | DRG 470 ==
LOC: 2ORMAIN 13:34 → 4SSUR 19:20
PROVIDERS: ADMIT Orthopaedic Surgery Sports Medicine; ATTEND Orthopaedic Surgery Sports Medicine
PROC: 0SRD069 Replacement of Left Knee Joint with Oxidized Zirconium on Polyethylene Synthetic Substitute, Cemented, Open Approach (ICD-10-PCS; principal; 2018-09-26 15:40)
DX: M17.12 Unilateral primary osteoarthritis, left knee (principal); E03.9 Hypothyroidism, unspecified; I10 Essential (primary) hypertension; K21.9 Gastro-esophageal reflux disease without esophagitis; L29.9 Pruritus, unspecified; T40.2X5A Adverse effect of other opioids, initial encounter; M48.02 Spinal stenosis, cervical region; M50.30 Other cervical disc degeneration, unspecified cervical region; M54.10 Radiculopathy, site unspecified; M54.30 Sciatica, unspecified side; M79.7 Fibromyalgia; Z87.01 Personal history of pneumonia (recurrent); Z87.891 Personal history of nicotine dependence; Z96.652 Presence of left artificial knee joint; Z98.84 Bariatric surgery status; Z79.1 Long term (current) use of non-steroidal anti-inflammatories (NSAID); Z79.890 Hormone replacement therapy; Z79.899 Other long term (current) drug therapy; Z88.2 Allergy status to sulfonamides; Z82.49 Family history of ischemic heart disease and other diseases of the circulatory system; Z88.1 Allergy status to other antibiotic agents; Z79.82 Long term (current) use of aspirin; Z79.891 Long term (current) use of opiate analgesic
CPT/HCPCS: 81003; 85025; 88300

== ENCOUNTER → 2018-12-10 | Outpatient (CLI) | payer OTHER ==
[2018-12-10 14:54] VITALS: BP 126/76; PULSE 106; RESP 16; TEMP 97.8; BMI 38.2
--- NOTE | 2018-12-10 17:15 | P.BASOAP ---
Subjective Progress Note Date: 12/10/18 Principal diagnosis: Morbid obesity Patient has not been seen in the bariatric clinic since approximately 2014. She was on steroids and because of that she believes she gained 30 pounds. Preoperative weight 280, best weight with LAP-BAND 197. Currently at 2:30. Patient requesting a band adjustment. Please see the patient's band was loosened 0.4 mL. Upper GI that time was normal. Currently has 3 mL in the band. Objective - Vital Signs Vital signs: Vital Signs Temp 97.8 F 12/10/18 14:42 Pulse 106 H 12/10/18 14:42 Resp 16 12/10/18 14:42 BP 126/76 12/10/18 14:42 Pulse Ox Intake & Output 12/09/18 12/10/18 12/10/18 18:59 06:59 18:59 Weight 104.326 kg - Exam Abdomen: Soft, nontender, nondistended Assessment/Plan (1) Morbid obesity Narrative/Plan: Patient requesting LAP-BAND adjustment. Would like to see the dietitian today as well. Plan follow-up 1-2 months. The patient's lap band port was palpated. The site was aseptically prepped. The Mendoza needle was advanced into the port. A total of 0.3 ml of fluid was added for a total of 3.3. Pressure was held and a sterile dressing was applied. Plan: Date: 12/10/18 Initial Weight: 127.006 kg Initial BMI: 46.5 Current Weight: 104.326 kg Current BMI: 38.2 Type of Surgery: Total Volume in Band: 3.3 Previous Volume: 3.0 Volume Removed: Volume Added: 0.3 Band Size:
== END ==
LOC: BARWHC3 14:25
PROVIDERS: ATTEND Surgery
DX: E66.01 Morbid (severe) obesity due to excess calories (principal); Z68.38 Body mass index [BMI] 38.0-38.9, adult
CPT/HCPCS: 97803; G0463; 99202

== ENCOUNTER → 2018-12-16 | Outpatient (CLI) | payer OTHER ==
--- NOTE | 2018-12-17 08:46 | US ---
EXAMINATION TYPE: US thyroid st tissue head/neck DATE OF EXAM: 12/16/2018 COMPARISON: US 02/23/16 CLINICAL HISTORY: E04.2 Thyroid Nodule. Follow up thyroid nodules left side. GLAND SIZE: Right Lobe: 3.6 x 1.2 x 1.2 cm Overall Parenchyma: heterogenous Left Lobe: 5.3 x 1.8 x 1.3 cm Overall Parenchyma: heterogeneous Isthmus Thickness: 0.3 cm NODULES RIGHT: # of nodules measured on right: 0 LEFT: # of nodules measured on left: 3 1. 0.7 X 0.7 x 0.4 cm hypoechoic solid nodule at the mid pole with well-defined margins; . This no dule is wider than tall and shows no intranodular vascularity. Prior size: 0.6 x 0.7 x 0.4 cm 2. 0.6 X 0.6 x 0.5 cm hypoechoic solid nodule at the mid, medial pole with poorly defined margins; . This nodule is wider than tall and shows no intranodular vascularity. Prior size: 0.6 x 0.6 x 0.5 cm 3. 1.4 X 1.1 x 1.1 cm echogenic solid nodule at the lower pole with well-defined margins; . This no dule is as wide as tall and shows intranodular vascularity. Prior size: 1.4 x 0.9 x 0.9 cm ISTHMUS: # of nodules measured in the isthmus: 0 Bilateral neck scanned, no evidence of lymphadenopathy. Findings suggest multinodular goiter IMPRESSION: Essentially stable thyroid ultrasound
== END | disposition home or self-care (01) ==
LOC: RADUSWWP 16:51
PROVIDERS: ATTEND Surgery
DX: E04.2 Nontoxic multinodular goiter (principal)
CPT/HCPCS: 76536

== ENCOUNTER → 2019-06-09 | Outpatient (CLI) | payer MEDICARE, OTHER ==
--- NOTE | 2019-06-09 19:37 | MR ---
EXAMINATION TYPE: MR lumbar spine wo con DATE OF EXAM: 06/09/2019 COMPARISON: 10/01/2017 HISTORY: Low back pain /Spinal stenosis TECHNIQUE: T1 and T2 axial and sagittal images of the lumbar spine are submitted. FINDINGS: There is no abnormal signal seen within the visualized spinal cord or paraspinal soft tissu es. There is a cystic lesion within the left adnexa measuring [address] scan is recommended. At T12-L1 there is a stable right paracentral disc protrusion with mild effacement of thecal sac but no spinal cord contact or foraminal encroachment. Facet arthropathy noted. At L1-2 there is there is facet arthropathy and ligamentum flavum hypertrophy. No canal stenosis or f ocal herniation. Neural foramina patent. Minimal central disc bulging stable. At L2-3 there is circumferential disc bulging and facet arthropathy with ligamentum flavum hypertroph y. Disc bulging greater laterally to left with mild left foraminal encroachment and mild canal stenos is. At L3-4 there is degenerative disc disease and diffuse disc broad-based central protrusion with facet arthropathy and ligamentum flavum hypertrophy. Bilateral moderate foraminal encroachment and moderat e canal stenosis. At L4-5 there is diffuse disc broad-based disc protrusion with hypertrophic change and ligamentum fla vum facets. Mild bilateral foraminal encroachment and moderate central stenosis. At L5-S1 there is small focal central disc protrusion stable. No Canal stenosis. Facet arthropathy no chasidy. Mild bilateral foraminal encroachment. IMPRESSION: 1. Multilevel degenerative disc disease and disc bulging or protrusion is discussed above. Most marke d findings at L3-4 and L4-5 with moderate canal stenosis and bilateral foraminal encroachment. 2. Stable right paracentral disc protrusion T12-L1. 3. Stable mild canal stenosis secondary to disc protrusion and hypertrophic changes L2-L3. 4. Suggestion of a left adnexal cystic mass measuring 5 cm for which ultrasound of the pelvis is sameer mmended.
== END | disposition home or self-care (01) ==
LOC: RADMRIMAIN 18:48
PROVIDERS: ATTEND Orthopaedic Surgery Orthopaedic Surgery of the Spine
DX: M48.062 Spinal stenosis, lumbar region with neurogenic claudication (principal); M51.26 Other intervertebral disc displacement, lumbar region; M51.36 Other intervertebral disc degeneration, lumbar region
CPT/HCPCS: 72148

== ENCOUNTER → 2021-06-07 | Outpatient (CLI) | payer MEDICARE ==
[2021-06-07 14:15] VITALS: BP 120/77; PULSE 80; RESP 18; TEMP 97.9; BMI 37.3
--- NOTE | 2021-06-07 15:24 | P.BASOAP ---
Subjective Progress Note Date: 06/07/21 Principal diagnosis: Morbid obesity Patient returns for evaluation. Last seen November 2018. Patient had 3.4 mL in her band when it was loosened down to 3 mL. Last visit she went from 3 mL to 3.3 mL. Lately she has had increased reflux. She had some retrosternal pain. Pain in the upper abdomen does radiate to the right upper quadrant at times. Occurred recently after eating chili. Remains on omeprazole twice daily. She says her band does feel too tight. Objective - Vital Signs Vital signs: Vital Signs Temp 97.9 F 06/07/21 14:10 Pulse 80 06/07/21 14:10 Resp 18 06/07/21 14:10 BP 120/77 06/07/21 14:10 Pulse Ox Intake & Output 06/06/21 06/07/21 06/07/21 18:59 06:59 18:59 Weight 101.695 kg - Exam Abdomen: Soft, nontender, nondistended Assessment/Plan (1) Morbid obesity Narrative/Plan: Patient with reflux and retrosternal pain. Some dysphagia. Will empty band at this time. If patient's complaints of pain persists will order ultrasound of gallbladder. Will consider upper GI prior to refilling patient's band. Follow- up 2 months. The patient's lap band port was palpated. The site was aseptically prepped. The Mendoza needle was advanced into the port. A total of 3 ml of fluid was removed. Pressure was held and a sterile dressing was applied. Plan: Date: 06/07/21 Initial Weight: 127.006 kg Initial BMI: 46.5 Current Weight: 101.695 kg Current BMI: 37.3 Type of Surgery: Total Volume in Band: 3.3 Previous Volume: Volume Removed: Volume Added: Band Size:
== END ==
LOC: BARWHC3 13:55
PROVIDERS: ATTEND Surgery
DX: E66.01 Morbid (severe) obesity due to excess calories (principal); K21.9 Gastro-esophageal reflux disease without esophagitis; R13.10 Dysphagia, unspecified; Z68.37 Body mass index [BMI] 37.0-37.9, adult; Z46.51 Encounter for fitting and adjustment of gastric lap band; Z87.891 Personal history of nicotine dependence; Z88.1 Allergy status to other antibiotic agents; Z88.2 Allergy status to sulfonamides
CPT/HCPCS: 99212

== ENCOUNTER → 2021-06-22 | Outpatient (CLI) | payer MEDICARE ==
--- NOTE | 2021-06-22 10:43 | US ---
EXAMINATION TYPE: US abdomen limited DATE OF EXAM: 06/22/2021 COMPARISON: NONE CLINICAL HISTORY: RUQ pain R10.11. EXAM MEASUREMENTS: Liver Length: 12.5 cm Gallbladder Wall: 0.2 cm CBD: 0.5 cm Right Kidney: 9.0 x 4.4 x 4.8 cm Pancreas: Obscured by bowel gas Liver: wnl Gallbladder: No stones seen Evidence for sonographic Billings's sign: Yes CBD: wnl Right Kidney: No hydronephrosis or masses seen IMPRESSION: No distinct abnormality seen.
== END | disposition home or self-care (01) ==
LOC: RADUSWWP 10:10
PROVIDERS: ATTEND Family Medicine
DX: R10.11 Right upper quadrant pain (principal)
CPT/HCPCS: 76705

== ENCOUNTER → 2021-11-08 | Outpatient (CLI) | payer MEDICARE ==
[2021-11-08 13:47] VITALS: BP 119/82; PULSE 94; RESP 16; TEMP 97.7; BMI 39.7
--- NOTE | 2021-11-08 14:04 | P.BASOAP ---
Subjective Progress Note Date: 11/08/21 Principal diagnosis: Morbid obesity Patient here today for bariatric follow-up. Since her band was loosened her restriction and reflux symptoms have resolved. No nausea or vomiting. She is anxious to have more fluid added back to the band. Last upper GI 2016 was normal. She had 3 mL removed last visit. Ultrasound was also done because she was having some upper abdominal discomfort which was normal. Objective - Vital Signs Vital signs: Vital Signs Temp 97.7 F 11/08/21 13:45 Pulse 94 11/08/21 13:45 Resp 16 11/08/21 13:45 BP 119/82 11/08/21 13:45 Pulse Ox Intake & Output 11/07/21 11/08/21 11/08/21 18:59 06:59 18:59 Weight 108.409 kg - Exam Abdomen: Soft, nontender, nondistended Assessment/Plan (1) Morbid obesity Narrative/Plan: Patient has gained weight since her band was emptied. Discussed options. She would like more fluid admitted back to the band. She was tight at 3 mL. We'll add 2 mL today. We'll hold off on esophagram unless patient develops recurrent symptoms of dysphagia or significant reflux. The patient's lap band port was palpated. The site was aseptically prepped. The Mendoza needle was advanced into the port. A total of 2 ml of fluid was added. Pressure was held and a sterile dressing was applied. Plan: Date: 11/08/21 Initial Weight: 127.006 kg Initial BMI: 46.5 Current Weight: 108.409 kg Current BMI: 39.7 Type of Surgery: Adjustable Gastric Banding Total Volume in Band: 3.3 Previous Volume: Volume Removed: Volume Added: Band Size:
== END ==
LOC: BARWHC3 13:19
PROVIDERS: ATTEND Surgery
DX: E66.01 Morbid (severe) obesity due to excess calories (principal); Z46.51 Encounter for fitting and adjustment of gastric lap band; Z68.39 Body mass index [BMI] 39.0-39.9, adult; Z88.1 Allergy status to other antibiotic agents; Z88.2 Allergy status to sulfonamides; Z87.891 Personal history of nicotine dependence
CPT/HCPCS: 99212

== ENCOUNTER → 2023-06-26 | Outpatient (CLI) | payer MEDICARE ==
[2023-06-26 14:10] VITALS: BP 158/102; PULSE 103; RESP 16; TEMP 98.1; BMI 40.6
--- NOTE | 2023-06-26 14:50 | P.BASOAP ---
Subjective Progress Note Date: 06/26/23 Principal diagnosis: Morbid obesity Patient returns for reevaluation. She was last seen October 2021. Patient describes decreased restriction. She has gained 5 pounds since her last visit. She states she still does have heartburn at times related to spicy foods. Currently has 2 mL in her band. Patient requesting a fill. Objective - Vital Signs Vital signs: Vital Signs Temp 98.1 F 06/26/23 14:05 Pulse 103 H 06/26/23 14:05 Resp 16 06/26/23 14:05 BP 158/102 06/26/23 14:05 Pulse Ox FiO2 Intake & Output 06/25/23 06/26/23 06/26/23 18:59 06:59 18:59 Weight 110.677 kg - Exam Abdomen: Soft, nontender, nondistended Assessment/Plan (1) Morbid obesity Narrative/Plan: 62-year-old female with morbid obesity. We'll and 0.5 mL of fluid. We'll check esophagogram given the patient's ongoing complaints of reflux. Patient would like a note stating what her goal weight should be at this time. We discussed options. We have chosen a BMI of 30 as her goal for now. That would put her at a weight of 180. The patient's lap band port was palpated. The site was aseptically prepped. The Mendoza needle was advanced into the port. A total of 0.5 ml of fluid was added for a total of 2.5 mL. Pressure was held and a sterile dressing was applied. Plan: Date: 06/26/23 Initial Weight: 127.006 kg Initial BMI: 46.5 Current Weight: 110.677 kg Current BMI: 40.6 Type of Surgery: Adjustable Gastric Banding Total Volume in Band: 2 Previous Volume: Volume Removed: Volume Added: Band Size:
== END ==
LOC: BARWHC3 13:50
PROVIDERS: ATTEND Surgery
DX: E66.01 Morbid (severe) obesity due to excess calories (principal); Z98.84 Bariatric surgery status; Z46.51 Encounter for fitting and adjustment of gastric lap band; Z88.2 Allergy status to sulfonamides; Z88.1 Allergy status to other antibiotic agents; Z87.891 Personal history of nicotine dependence; Z68.41 Body mass index [BMI] 40.0-44.9, adult
CPT/HCPCS: 99212

== ENCOUNTER → 2023-07-23 | Outpatient (CLI) | payer MEDICARE ==
--- NOTE | 2023-07-23 09:43 | FL ---
EXAMINATION TYPE: FL barium swallow DATE OF EXAM: 07/23/2023 9:07 AM COMPARISON: None CLINICAL INDICATION:Female, 62 years old with history of R13.10 Dysphagia; TECHNIQUE: The procedure was explained and patient history elicited. All patient questions were ans wered prior to start of procedure. Multiple spot fluoroscopic images of the esophagus were obtained a fter the oral ingestion of effervescent crystals and liquid barium as the contrast agent. Fluoroscopic time: 34 seconds Fluoroscopic images: 0 Radiographs taken: 171 DAP: [id number] FINDINGS: There is delayed transit of ingested contrast through the distal esophagus with tortuosity to the eso phagus and tertiary contractions present. No abnormal outpouchings or masses identified. IMPRESSION: Delayed transit through the lap band suggesting partial obstruction with esophageal dysmotility and t ortuosity to the distal esophagus.
== END | disposition home or self-care (01) ==
LOC: RADUSWWP 08:34
PROVIDERS: ATTEND Surgery
DX: R13.10 Dysphagia, unspecified (principal)
CPT/HCPCS: 74220